=== PATIENT | female | born 1955 | race Caucasian/White ===

== ENCOUNTER 2017-03-20 19:29 | Emergency (ER) | payer OTHER ==
[~2017-03-20] VITALS: Ht 167.6 cm; Wt 102.3 kg
[~2017-03-20 19:29] MED LIST: ASPIRIN E.C. 8181 MG PO; CALCIUM 600MG+D1 TAB PO; CARDIZEM CD 12120 MG PO; ELIQUIS 5MG PO; FISH OIL 1000MG1 CAP PO; INDERAL LA 80MG80 MG PO; MULTAQ400 MG PO; MULTIPLE VITAMI1 CAP PO; ZOCOR 40MG40 MG PO
[2017-03-20 19:35] VITALS: TEMP 98.6
[2017-03-20 19:56] LABS: BASO # 0.1 (0.0-0.2); BASO % 0.8 % (0.0-2.0); EOS # 0.1 (0.0-0.7); EOS % 1.3 % (0-4.0); GRAN # 7.3 (1.4-6.5); GRAN % 69.6 % (42.2-75.2); HEMATOCRIT 42.5 % (37.0-47.0); HEMOGLOBIN 14.3 g/dl (12.5-16.0); LYMPH # 2.2 (1.2-3.4); LYMPH % 21.4 % (20.0-51.0); MEAN CELL VOLUME 92 fl (80.0-100.0); MEAN CORPUSCULAR HEMOGLOBIN 31 pg (27.0-31.0); MEAN CORPUSCULAR HGB CONC 34 g/dl (33.0-37.0); MEAN PLATELET VOLUME 10.3 fl (7.4-10.4); MONO # 0.7 (0.1-0.6); MONO % 6.5 % (1.7-9.3); PLATELET COUNT 303 K/mm3 (130-400); REDCELL DISTRIBUTION WIDTH-CV 13.4 % (11.5-14.5); WHITE BLOOD COUNT 10.5 K/mm3 (4.8-10.8)
[2017-03-20 20:01] LABS: INR 1.2 (0.8-3.0); PROTHROMBIN TIME 13.7 SECONDS (9.7-12.8)
[2017-03-20 20:08] LABS: ADJUSTED CALCIUM 8.8 mg/dL (8.4-10.2); ALANINE AMINOTRANSFERASE 42 U/L (9-52); ALBUMIN 4.6 gm/dL (3.5-5.0); ALKALINE PHOSPHATASE 118 U/L (50-136); ANION GAP 15 mmol/L (7-16); BILIRUBIN,TOTAL 0.5 mg/dL (0.0-1.0); BLOOD UREA NITROGEN 20 mg/dL (7-17); CALCIUM 9.3 mg/dL (8.4-10.2); CARBON DIOXIDE 22 mmol/L (22-30); CHLORIDE 106 mmol/L (98-107); CREATINE KINASE 56 U/L (30-135); CREATININE, serum 0.81 mg/dL (0.52-1.25); GLUCOSE 120 mg/dL (74-106); POTASSIUM 4.1 mmol/L (3.4-5.0); SODIUM 143 mmol/L (137-145); TOTAL PROTEIN 7.6 gm/dL (6.4-8.2)
[2017-03-20 20:19] LABS: B-TYPE NATRIURETIC PEPTIDE 951 pg/mL (0-125)
[2017-03-20 20:21] LABS: TROPONIN-I < 0.012 ng/mL (0.000-0.034)
[2017-03-20 21:49] VITALS: BP 129/69; PULSE 85
== END 2017-03-20 21:53 | disposition home or self-care (01) ==
LOC: COL.ER 19:29
PROVIDERS: Emergency Medicine
DX: I48.91 Unspecified atrial fibrillation (principal); Z79.01 Long term (current) use of anticoagulants; I10 Essential (primary) hypertension

== ENCOUNTER 2017-03-22 07:18 | Day surgery (SDC) | payer OTHER ==
[2017-03-22] VITALS (12 sets, daily range): BP systolic 113–160; BP diastolic 51–107; PULSE 65–105; TEMP 97.6
[~2017-03-22] VITALS: Ht 167.6 cm; Wt 104.5 kg
[2017-03-22 07:48] LABS: PROTHROMBIN TIME 11.2 SECONDS (9.7-12.8)
[2017-03-22 07:49] LABS: POTASSIUM 4.6 mmol/L (3.4-5.0)
[2017-03-22] MEDS ORDERED: INDERAL LA120 MG PO (07:56)
[2017-03-22] MEDS ORDERED: TAZTIA120 PO (07:58)
[2017-03-22 08:24] LABS: THYROID STIMULATING HORMONE 2.93 uIU/mL (0.465-4.680)
== END 2017-03-22 10:34 | disposition home or self-care (01) ==
LOC: COL.CAR 07:18
PROVIDERS: Internal Medicine Cardiovascular Disease
DX: I48.0 Paroxysmal atrial fibrillation (principal); I25.10 Atherosclerotic heart disease of native coronary artery without angina pectoris; I10 Essential (primary) hypertension; E78.2 Mixed hyperlipidemia; G47.33 Obstructive sleep apnea (adult) (pediatric); Z95.5 Presence of coronary angioplasty implant and graft; Z79.01 Long term (current) use of anticoagulants; Z82.49 Family history of ischemic heart disease and other diseases of the circulatory system
CPT/HCPCS: J2250; J3010; J7030

== ENCOUNTER 2017-03-26 07:41 | Inpatient (IN) | payer OTHER ==
[~2017-03-26] VITALS: Ht 167.6 cm; Wt 124.6 kg
[~2017-03-26 07:41] MED LIST changes: +INDERAL LA120 MG PO; +TAZTIA120 PO
[2017-03-26] MEDS ORDERED: SINGULAIR 110 MG/TAB PO (07:56)
[2017-03-26 08:25] VITALS: BP 135/64; PULSE 63; TEMP 98
[2017-03-26 09:35] LABS: HEMOGLOBIN 12.9 g/dl (12.5-16.0); MEAN CELL VOLUME 93 fl (80.0-100.0); MEAN CORPUSCULAR HEMOGLOBIN 31 pg (27.0-31.0); MEAN CORPUSCULAR HGB CONC 33 g/dl (33.0-37.0); MEAN PLATELET VOLUME 10.2 fl (7.4-10.4); PLATELET COUNT 234 K/mm3 (130-400); RED BLOOD COUNT 4.18 M/mm3 (4.10-5.30); REDCELL DISTRIBUTION WIDTH-CV 13.6 % (11.5-14.5); WHITE BLOOD COUNT 7.5 K/mm3 (4.8-10.8)
[2017-03-26 09:40] LABS: INR 1.3 (0.8-3.0); PROTHROMBIN TIME 14.2 SECONDS (9.7-12.8)
[2017-03-26 09:48] LABS: ADJUSTED CALCIUM 8.8 mg/dL (8.4-10.2); ALBUMIN 4.6 gm/dL (3.5-5.0); BILIRUBIN,TOTAL 0.6 mg/dL (0.0-1.0); CALCIUM 9.3 mg/dL (8.4-10.2); CREATININE, serum 0.76 mg/dL (0.52-1.25); POTASSIUM 4.2 mmol/L (3.4-5.0); TOTAL PROTEIN 7.6 gm/dL (6.4-8.2)
[2017-03-26 11:34] VITALS: BP 134/69; PULSE 52; TEMP 98
[2017-03-26 17:16] VITALS: BP 146/76; PULSE 57; TEMP 98.4
[2017-03-26 19:15] VITALS: BP 134/53; PULSE 62; TEMP 97.9
[2017-03-27 00:06] VITALS: BP 129/59; PULSE 62; TEMP 97.9
[2017-03-27 03:24] VITALS: BP 120/57; PULSE 64; TEMP 97.9
[2017-03-27 06:00] LABS: CALCIUM 9.2 mg/dL (8.4-10.2); CREATININE, serum 0.74 mg/dL (0.52-1.25); POTASSIUM 4.5 mmol/L (3.4-5.0)
[2017-03-27 06:08] LABS: INR 1.1 (0.8-3.0); PROTHROMBIN TIME 12.6 SECONDS (9.7-12.8)
[2017-03-27 07:28] VITALS: BP 139/62; PULSE 55; TEMP 98.3
[2017-03-27 11:17] VITALS: BP 149/78; PULSE 56; TEMP 98.2
[2017-03-27 15:47] VITALS: BP 150/63; PULSE 57; TEMP 98.1
[2017-03-27 20:42] VITALS: BP 140/70; PULSE 72; TEMP 97.8
[2017-03-28 00:52] VITALS: BP 140/72; PULSE 65; TEMP 98.1
[2017-03-28 04:27] VITALS: BP 122/54; PULSE 63; TEMP 97.5
[2017-03-28 06:26] LABS: INR 1.1 (0.8-3.0); PROTHROMBIN TIME 12.4 SECONDS (9.7-12.8)
[2017-03-28 06:27] LABS: CALCIUM 8.9 mg/dL (8.4-10.2); CREATININE, serum 0.77 mg/dL (0.52-1.25); POTASSIUM 4.4 mmol/L (3.4-5.0)
[2017-03-28 07:23] VITALS: BP 138/80; PULSE 60; TEMP 98.2
[2017-03-28] MEDS ORDERED: BETAPACE 120MG120 MG PO (10:35)
== END 2017-03-28 10:57 | disposition home or self-care (01) | DRG 310 ==
LOC: MEDICAL 07:41
PROVIDERS: Internal Medicine Cardiovascular Disease
DX: I48.0 Paroxysmal atrial fibrillation (principal); I10 Essential (primary) hypertension; I25.10 Atherosclerotic heart disease of native coronary artery without angina pectoris; G47.33 Obstructive sleep apnea (adult) (pediatric); E78.5 Hyperlipidemia, unspecified

== ENCOUNTER 2017-04-26 08:14 | Day surgery (SDC) | payer OTHER ==
[~2017-04-26] VITALS: Ht 167.6 cm; Wt 122.9 kg
[~2017-04-26 08:14] MED LIST changes: +BETAPACE 120MG120 MG PO; +SINGULAIR 110 MG/TAB PO
[2017-04-26 08:48] VITALS: BP 189/95; PULSE 75; TEMP 97.7
[2017-04-26] MEDS ORDERED: CRANBERRY500 M3 PO (08:55)
[2017-04-26] MEDS ORDERED: FIBERCON (08:56)
[2017-04-26 10:29] VITALS: BP 193/91; PULSE 70; TEMP 98
[2017-04-26 10:45] VITALS: BP 187/84; PULSE 53
[2017-04-26] MEDS ORDERED: NEXIUM 40MG40 MG PO (10:49)
[2017-04-26 16:55] VITALS: BP 163/74; PULSE 60
== END 2017-04-26 11:28 | disposition home or self-care (01) ==
LOC: SDCO 08:14
DX: Z86.010 Personal history of colon polyps (principal); K92.1 Melena; K64.1 Second degree hemorrhoids; K64.4 Residual hemorrhoidal skin tags; K21.9 Gastro-esophageal reflux disease without esophagitis; R13.12 Dysphagia, oropharyngeal phase; I48.91 Unspecified atrial fibrillation; Z79.01 Long term (current) use of anticoagulants; G47.30 Sleep apnea, unspecified; Z96.60 Presence of unspecified orthopedic joint implant; D64.9 Anemia, unspecified; R05 Cough; I10 Essential (primary) hypertension; E78.00 Pure hypercholesterolemia, unspecified; Z90.710 Acquired absence of both cervix and uterus
CPT/HCPCS: OP; J2250; J3010; J7030